=== PATIENT | female | born 1990 | race Caucasian/White ===

== ENCOUNTER 2019-01-21 11:48 | Outpatient (CLI) | payer OTHER ==
[~2019-01-21] VITALS: Ht 175.3 cm; Wt 120.0 kg
--- NOTE | 2019-01-21 12:00 | NUR ---
Patient presents to unit with complaints of bleeding and decreased movement. Patient reports then that she felt baby move on the way to facility. She denies any recent heavy lifting or sexual intercourse. Assesment completed, and monitors in place. Patient describes spotting with urination when wiping, discomfort and frequency without able to void. notified of patient arrival, FHT's in 130's with moderate variability and accelerations. No contractoins noted. per obtain UA and monitor.
[2019-01-21 12:04] VITALS: BP 111/59; PULSE 85; TEMP 99
[2019-01-21] MEDS ORDERED: SYNTHROID0.175 MG PO (12:08)
[2019-01-21] MEDS ORDERED: ZOLOFT 50MG50 MG PO (12:08)
[2019-01-21 13:12] LABS: COLLECTION METHOD CLEAN CATCH
[2019-01-21 13:25] LABS: MUCOUS Present /lpf; PH 7 (5-8); SQUAMOUS EPITHELIAL 0-2 /hpf; URINE APPEARANCE Hazy; URINE BACTERIA Occasional /hpf; URINE BILIRUBIN Negative (NEGATIVE); URINE BLOOD Negative (NEGATIVE); URINE COLOR Yellow; URINE GLUCOSE Negative (NEGATIVE); URINE KETONE Negative (NEGATIVE); URINE LEUKOCYTE ESTERASE Trace (NEGATIVE); URINE NITRATE Negative (NEGATIVE); URINE PROTEIN(semi-quant) Negative (NEGATIVE); URINE RBC 0-2 /hpf; URINE UROBILINOGEN Negative (NEGATIVE)
--- NOTE | 2019-01-21 13:38 | NUR ---
PRESCRIPTION CALLED IN ORDERED BY PHYSICIAN OF MACROBID 100MG PO/BID X7 DAYS
[2019-01-22] MEDS ORDERED: CEFTIN 250250 MG/TAB PO (02:52)
== END 2019-01-21 13:30 | disposition home or self-care (01) ==
LOC: LDRO 11:48 → LDR 12:57 → LDRO 13:30
PROVIDERS: Obstetrics & Gynecology
DX: O46.93 Antepartum hemorrhage, unspecified, third trimester (principal); O36.8130 Decreased fetal movements, third trimester, not applicable or unspecified; Z3A.35 35 weeks gestation of pregnancy
CPT/HCPCS: OP

== ENCOUNTER 2019-01-22 01:14 | Emergency (ER) | payer OTHER ==
[~2019-01-22] VITALS: Ht 175.3 cm; Wt 100.0 kg
[~2019-01-22 01:14] MED LIST: SYNTHROID0.175 MG PO; ZOLOFT 50MG50 MG PO
[2019-01-22 01:16] VITALS: TEMP 97.5
--- NOTE | 2019-01-22 01:49 | NUR ---
Pt seen in the ED for complaints of diarrhea. G2L1 36 wks gestation due 02/19/[address] Major. Pt denies any contractions, leaking of fluid, vaginal bleeding and reports normal movement. EFM and toco monitors started. Audible movement. No contractions noted per toco. See monitor charting for details. Encouraged scheduled follow up with MD. Drink plenty of fluid to stay hydrated. Call or return for concerns with contractions, leaking of fluid, vaginal bleeding or decreased movement.
[2019-01-22] MEDS ORDERED: CEFTIN 250250 MG/TAB PO (02:52)
[2019-01-22 02:56] VITALS: BP 102/64; PULSE 95
== END 2019-01-22 02:56 | disposition home or self-care (01) ==
LOC: COL.ER 01:14
DX: R19.7 Diarrhea, unspecified (principal); F41.9 Anxiety disorder, unspecified; F32.9 Major depressive disorder, single episode, unspecified; F43.10 Post-traumatic stress disorder, unspecified; Z90.89 Acquired absence of other organs; Z88.0 Allergy status to penicillin; Z88.8 Allergy status to other drugs, medicaments and biological substances

== ENCOUNTER 2019-02-23 07:03 | Inpatient (IN) | payer OTHER ==
[~2019-02-23] VITALS: Ht 175.3 cm; Wt 124.1 kg
[2019-02-23] VITALS (46 sets, daily range): BP systolic 102–142; BP diastolic 51–78; PULSE 75–113; TEMP 97.7–98.2
[~2019-02-23 07:03] MED LIST changes: +CEFTIN 250250 MG/TAB PO
--- NOTE | 2019-02-23 07:05 | NUR ---
PATIENT HERE IN LR 4 FOR INDUCTION. PATIENT CHANGED INTO GOWN. ON EFM, VOTALS OBTAINED. ADMISSION COMPLETE, IV STARTED, SVE PREFORMED, PATIENT DENIES LEAKING OF FLUID, CONTRACTIONS, OR BLEEDING. MAXI MCCRAY PRESENT AND INVOLVED. PATIENT STATES SHE QUALIFIES FOR WIC AND WILL MEET WITH THEM AFTER THE BABY IS BORN.
[2019-02-23] MEDS ORDERED: LEVO-DROMORAN2 MG (08:08)
[2019-02-23] MEDS ORDERED: TIROSINT S PO (08:13)
[2019-02-23] MEDS ORDERED: ZOLOFT 25MG25 MG PO (08:14)
[2019-02-23] MEDS ORDERED: PRENATAL (08:15)
[2019-02-23 08:22] LABS: BASO % 0.2 % (0.0-2.0); EOS # 0.1 (0.0-0.7); EOS % 0.5 % (0-4.0); GRAN # 8.8 (1.4-6.5); HEMOGLOBIN 10.4 g/dl (12.5-16.0); LYMPH # 2.9 (1.2-3.4); LYMPH % 23.7 % (20.0-51.0); MEAN CELL VOLUME 81 fl (80.0-100.0); MEAN CORPUSCULAR HEMOGLOBIN 25 pg (27.0-31.0); MEAN CORPUSCULAR HGB CONC 32 g/dl (33.0-37.0); MEAN PLATELET VOLUME 9.8 fl (7.4-10.4); MONO # 0.5 (0.1-0.6); PLATELET COUNT 340 K/mm3 (130-400)
--- NOTE | 2019-02-23 18:45 | NUR ---
184 DR STEWART IN ROOM TO VISIT WITH PT. PT STATES NOT REALLY FEELING ANY CONTRACTIONS AT THIS TIME. NOTED ON EFM EVERY 3-4 MINS. MONITER STRIP VIEWED BY DR STEWART. SVE PER DR STEWART WITH NO CERVICAL CHANGE. PITOCIN DCD. DISCUSSED OPTIONS AND PT CHOOSES TO BE DISCHARGED TO HOME AND BE SEEN IN OFFICE ON SATURDAY. 1912 EFM OFF FOR PT TO VOID. IV DCD AND DRESSED WHILE UP. 1924 DISMISS INSTRUCTIONS GIVEN AND QUESTIONS ANSWERED. HOME PER AMB WITH SPOUSE.
== END 2019-02-23 19:25 | disposition home or self-care (01) | DRG 833 ==
LOC: LDR 07:03
PROVIDERS: ADMIT Obstetrics & Gynecology
PROC: 3E033VJ Introduction of Other Hormone into Peripheral Vein, Percutaneous Approach (ICD-10-PCS; principal; 2019-02-23)
DX: O48.0 Post-term pregnancy (principal); Z3A.40 40 weeks gestation of pregnancy; O99.213 Obesity complicating pregnancy, third trimester; Z85.850 Personal history of malignant neoplasm of thyroid; O99.283 Endocrine, nutritional and metabolic diseases complicating pregnancy, third trimester; O99.013 Anemia complicating pregnancy, third trimester; O99.344 Other mental disorders complicating childbirth; F43.10 Post-traumatic stress disorder, unspecified
CPT/HCPCS: J2590; J7120

== ENCOUNTER 2019-02-27 09:30 | Inpatient (IN) | payer OTHER ==
[2019-02-27] VITALS (55 sets, daily range): BP systolic 92–153; BP diastolic 50–82; PULSE 76–130; TEMP 98.2–98.8
[~2019-02-27 09:30] MED LIST changes: +LEVO-DROMORAN2 MG; +PRENATAL; +TIROSINT S PO; +ZOLOFT 25MG25 MG PO
--- NOTE | 2019-02-27 09:40 | NUR ---
Patient presents to unit with significant other. External monitoring started, IV started in right hand, assessment completed. Pt states she is not in discomfort at this time.
[2019-02-27 10:23] LABS: BASO % 0.2 % (0.0-2.0); EOS # 0.1 (0.0-0.7); EOS % 0.4 % (0-4.0); GRAN # 8.6 (1.4-6.5); GRAN % 73.7 % (42.2-75.2); HEMOGLOBIN 10.2 g/dl (12.5-16.0); LYMPH # 2.3 (1.2-3.4); LYMPH % 20.1 % (20.0-51.0); MEAN CELL VOLUME 81 fl (80.0-100.0); MEAN CORPUSCULAR HEMOGLOBIN 25 pg (27.0-31.0); MEAN CORPUSCULAR HGB CONC 31 g/dl (33.0-37.0); MEAN PLATELET VOLUME 9.7 fl (7.4-10.4); MONO # 0.6 (0.1-0.6); MONO % 4.8 % (1.7-9.3); PLATELET COUNT 313 K/mm3 (130-400); RED BLOOD COUNT 4.06 M/mm3 (4.10-5.30); REDCELL DISTRIBUTION WIDTH-CV 17.2 % (11.5-14.5)
[2019-02-27 10:24] LABS: HEMATOCRIT 32.8 % (37.0-47.0)
--- NOTE | 2019-02-27 12:00 | NUR ---
Dr. Major at bedside. Reviewed FHR strip and contraction pattern. Patient reports she is feeling contractions and they are getting stronger. Discussing plan for SVE and AROM, patient agrees. 1205- SVE per provider . AROM by for small amount of clear fluid. Pericare given. Orders to continue Pitocin induction.
--- NOTE | 2019-02-27 14:40 | NUR ---
RN at bedside adjusting toco after repositioning patient. Contractions palpated every 2-2.5 minutes, relaxed resting tone.
--- NOTE | 2019-02-27 16:35 | NUR ---
Dr. Major at bedside, reviews FHR strip and contraction pattern. Discussing IUPC placement, patient agrees. SVE per provider 203/70/-3. IUPC placed by provider without diffiuclty, tracing well. Patient updated on plan of care. Orders to have next shift perform SVE and update physician.
--- NOTE | 2019-02-27 19:40 | NUR ---
192- PT SITTING UP AT SIDE OF BED FOR EPIDURAL PLACEMENT. THIS NURSE ADJUSTING US. FM AUDIBLE. 1925- Srikanth COX CRNA IN ROOM FOR EPIDURAL PLACEMENT. 1933- SINGLE SHOT GIVEN BY Srikanth COX CRNA, PT TOLERATED WELL. THIS NURSE CONTINUE TO ADJUST US, FM AUDIBLE. 1939- PT REPOSTIONED INTO SEMIFOWLERS WITH LEFT WEDGE FOLLOWING EPIDURAL PLACEMENT. US ADJUSTED.
--- NOTE | 2019-02-27 20:05 | NUR ---
1944- REPOSITIONED TO RIGHT WEDGE. 1949- BEGINS HAVE RECURRENT LATE DECELERATIONS INTO THE 90'S. THIS NURSE AT BEDSIDE. LR BOLUS CONTINUES, O2 ON AT 10L VIA FACEMASK. 1950- PITOCIN OFF, SVE OF 3-4/75/-3. 1952- LATE DECELERATIONS CONTINUE INTO THE 90'S. REPOSITIONED TO LEFT LATERAL. 1956- LATE DECELERATIONS CONTINUE INTO THE 130'S FROM BASELINE OF 155. DR. CUNNINGHAM ON UNIT, INTO ROOM TO EVALUATE PT, PERFORMS SVE, UNCHANGED FROM THIS NURSE'S PREVIOUS EXAM. 1999- DR. CUNNINGHAM OUT OF ROOM. SUBTLE LATE DECELERATIONS CONTINUE, DROPPING TO 140'S FROM BASELINE OF 155. 2004- DR. STEWART NOTIFIED, SEE PHYSICIAN NOTIFICATION.
--- NOTE | 2019-02-27 20:30 | NUR ---
2014-FSE PLACED PER DR. STEWART, SVE OF /-3. AND LR BOLUS DC'D. 2019- DR STEWART CALLS UNIT WITH UPDATE, SEE PHYSICIAN NOTIFICATION. PITOCIN RESTARTED AT [address] STEWART. 2025- [place] PLACED. PERICARE PROVIDED.
--- NOTE | 2019-02-27 21:44 | NUR ---
2129- CONTINUED SUBTLE LATE DECELERATIONS 2131- PT REPOSITIONED TO RIGHT LATERAL WITH LEG IN [place]IR[place]. EARLY DECELERATION AND VARIABLES SINCE POSITION CHANGE. 2143- CALLED DR. STEWART WITH UPDATE. SEE PHYSICIAN NOTIFICATION.
--- NOTE | 2019-02-27 22:15 | NUR ---
2158- DR. STEWART CALLS UNIT, SEE PHYSICIAN NOTIFICATION. 2201- PT TO KNEES AND CHEST. 2203- SVE PERFORMED, UNCHANGED. 2204- O2 ON AT 10L PER FACE MASK
--- NOTE | 2019-02-27 22:35 | NUR ---
2217- DR. STEWART IN ROOM TO EVALUATE PT. SVE UNCHANGED. DR. STEWART DISCUSSES PLAN OF CARE AND CONCERNS WITH FHTS. RECOMMENDS C/S AT THIS TIME. 2220- PT AND SPOUSE AGREE TO C/S AND VERBALIZE UNDERSTANDING. CHARGE, NSY, AND CORPORATE PHYSICAL SECURITY SUPERVISOR NOTIFIED OF PLAN. 2226- MONS PUBIS CLIPPED AND ABDOMINAL SCRUB PERFORMED. 2235- MONITORING DC'D. PT TO OR FOR C/S VIA BED.
[2019-02-28] VITALS (16 sets, daily range): BP systolic 102–125; BP diastolic 49–82; PULSE 76–108; TEMP 97.8–98.7
[2019-03-01 08:00] VITALS: BP 120/66; PULSE 88; TEMP 98.2
[2019-03-01] MEDS ORDERED: PERCOCET 325 MG1 TA2 PO (08:51)
[2019-03-01] MEDS ORDERED: IBU600 MG PO (08:51)
[2019-03-01 17:15] VITALS: BP 124/84; PULSE 95; TEMP 98
[2019-03-01 19:35] VITALS: BP 128/62; PULSE 88; TEMP 98.1
[2019-03-02 07:20] VITALS: BP 105/56; PULSE 80; TEMP 98.1
== END 2019-03-02 16:25 | disposition home or self-care (01) | DRG 788 ==
LOC: LDR 09:30 → OB 09:30
PROVIDERS: ADMIT Obstetrics & Gynecology
PROC: 10907ZC Drainage of Amniotic Fluid, Therapeutic from Products of Conception, Via Natural or Artificial Opening (ICD-10-PCS; principal; 2019-02-27)
PROC: 10D00Z1 Extraction of Products of Conception, Low, Open Approach (ICD-10-PCS; 2019-02-27)
DX: O41.03X0 Oligohydramnios, third trimester, not applicable or unspecified (principal); O99.284 Endocrine, nutritional and metabolic diseases complicating childbirth; E03.9 Hypothyroidism, unspecified; O99.02 Anemia complicating childbirth; D64.9 Anemia, unspecified; O99.214 Obesity complicating childbirth; O36.8330 Maternal care for abnormalities of the fetal heart rate or rhythm, third trimester, not applicable or unspecified; Z3A.41 41 weeks gestation of pregnancy; Z37.0 Single live birth; Z85.850 Personal history of malignant neoplasm of thyroid; Z88.0 Allergy status to penicillin
CPT/HCPCS: J0690; J1885; J2370; J2400; J2405; J2590; J2791; J2795; J3010; J7120

== ENCOUNTER → 2019-03-11 | Outpatient (CLI) | payer OTHER ==
[~2019-03-11] MED LIST changes: +IBU600 MG PO; +PERCOCET 325 MG1 TA2 PO
--- NOTE | 2019-03-11 12:16 | NUR ---
Pt, Shruti Browning, presents for outpatient consult with 12 day old baby girl, Katiuska Busby, because Katiuska does not latch to the breast without the nipple shield, and hx significant for low milk supply. Pt reports h/o thyroid cancer with thyroidectomy and treatment in [id number]. She takes replacement levothyroxine. Also reports h/o PCOS that is reportedly not a factor after she lost a large amount of weight. Katiuska was born by repeat c/section on 02/27/[birth year] and weighed 7#14.6oz (3590 gms). Her lowest known weight was 7#3oz on 03/03/19. Today Katiuska weighs 7#11.2oz (3492 gms). Pt reports Katiuska breastfeeds frequently in daytime, every couple hours, with the nipple shield. In the noc hours Katiuska is fed 2oz EBM or formula x2. Pt pumps at these feedings and reports collecting about 2oz total. Mario Alberto first nurses with the nipple shield. She has a 0.5oz (16 gms) weight gain after the left breast and 0.9oz (26 gms) on the left. Pt is assisted with placing Katiuska back to the breast without the nipple shield, Katiuska latches, has some swallows and additional gain of Total gain after bilaterally, both with and without the nipple shield is 1.7oz, (50 gms) POC: Handout provided with suggestions for increasing milk supply. Encouraged herbal supplements and power pumping. Elective supplementing after breastfeedings as needed and continue pumping and bottle feeding. F/U: Encouraged to attend walk-in clinic next Saturday. Questions invited and answered.
== END ==
LOC: OLC 11:51 → COL.VAS 11:51
DX: I80.299 Phlebitis and thrombophlebitis of other deep vessels of unspecified lower extremity (principal)

== ENCOUNTER 2019-09-03 18:22 | Emergency (ER) | payer BC ==
[~2019-09-03] VITALS: Ht 175.3 cm; Wt 120.0 kg
[2019-09-03 18:25] VITALS: TEMP 97.8
[2019-09-03 19:04] LABS: ALBUMIN 3.8 gm/dL (3.5-5.0); BASO % 0.4 % (0.0-2.0); BILIRUBIN,TOTAL 0.3 mg/dL (0.0-1.0); CREATININE, serum 0.64 (0.52-1.25); EOS # 0.1 (0.0-0.7); EOS % 1.1 % (0-4.0); GRAN # 6.5 (1.4-6.5); GRAN % 59.7 % (42.2-75.2); HEMATOCRIT 39.1 % (37.0-47.0); LYMPH # 3.7 (1.2-3.4); LYMPH % 33.6 % (20.0-51.0); MEAN CELL VOLUME 80 fl (80.0-100.0); MEAN CORPUSCULAR HEMOGLOBIN 24 pg (27.0-31.0); MEAN CORPUSCULAR HGB CONC 31 g/dl (33.0-37.0); MEAN PLATELET VOLUME 9.3 fl (7.4-10.4); MONO # 0.5 (0.1-0.6); MONO % 4.9 % (1.7-9.3); PLATELET COUNT 276 K/mm3 (130-400); POTASSIUM 4.2 mmol/L (3.4-5.0); RED BLOOD COUNT 4.91 M/mm3 (4.10-5.30); REDCELL DISTRIBUTION WIDTH-CV 17.5 % (11.5-14.5); TOTAL PROTEIN 7.7 gm/dL (6.4-8.2)
[2019-09-03] MEDS ORDERED: SYNTHROID0.175 MG PO (19:05)
[2019-09-03] MEDS ORDERED: LEXAPRO 10MG10 MG PO (19:06)
[2019-09-03] MEDS ORDERED: PROFE180 MG PO (19:06)
[2019-09-03] MEDS ORDERED: OZEMPIC0.25 MG/0. SQ (19:06)
[2019-09-03] MEDS ORDERED: PROBIOTIC-10 370 MG PO (19:06)
[2019-09-03] MEDS ORDERED: VITAMIN D31000 I1 PO (19:06)
[2019-09-03] MEDS ORDERED: DESYREL 50MG50 MG PO ×2 (19:07)
[2019-09-03 19:08] LABS: INR 1.1 (0.8-3.0); PROTHROMBIN TIME 12.8 SECONDS (9.7-12.8)
[2019-09-03] MEDS ORDERED: NORCO 325 MG-51 TAB PO (19:44)
[2019-09-03 21:03] VITALS: BP 111/75; PULSE 79
== END 2019-09-03 21:05 | disposition home or self-care (01) ==
LOC: COL.ER 18:22
PROVIDERS: Nurse Practitioner
DX: M79.662 Pain in left lower leg (principal); M79.89 Other specified soft tissue disorders; E11.9 Type 2 diabetes mellitus without complications; F32.9 Major depressive disorder, single episode, unspecified; F43.10 Post-traumatic stress disorder, unspecified; Z88.0 Allergy status to penicillin; Z88.8 Allergy status to other drugs, medicaments and biological substances; Z79.84 Long term (current) use of oral hypoglycemic drugs
CPT/HCPCS: J1650

== ENCOUNTER → 2019-09-04 | Outpatient (CLI) | payer BC ==
[~2019-09-04] MED LIST changes: +DESYREL 50MG50 MG PO; +LEXAPRO 10MG10 MG PO; +NORCO 325 MG-51 TAB PO; +OZEMPIC0.25 MG/0. SQ; +PROBIOTIC-10 370 MG PO; +PROFE180 MG PO; +VITAMIN D31000 I1 PO
== END ==
LOC: COL.VAS 08:58
DX: M79.89 Other specified soft tissue disorders (principal)

== ENCOUNTER 2021-03-13 11:38 | Emergency (ER) | payer OTHER, BC ==
[~2021-03-13] VITALS: Ht 175.3 cm; Wt 98.6 kg
[2021-03-13 11:49] VITALS: TEMP 97.8
[2021-03-13 13:07] LABS: BASO % 0.2 % (0.0-2.0); EOS % 0.2 % (0-4.0); HEMATOCRIT 42.9 % (37.0-47.0); HEMOGLOBIN 13.6 g/dl (12.5-16.0); LYMPH # 3.2 K/mm3 (1.2-3.4); LYMPH % 19.8 % (20.0-51.0); MEAN CELL VOLUME 83 fl (80.0-100.0); MEAN CORPUSCULAR HEMOGLOBIN 26 pg (27.0-31.0); MEAN CORPUSCULAR HGB CONC 32 g/dl (33.0-37.0); MEAN PLATELET VOLUME 9.1 fl (7.4-10.4); MONO # 0.9 K/mm3 (0.1-0.6); MONO % 5.4 % (1.7-9.3); PLATELET COUNT 426 K/mm3 (130-400); RED BLOOD COUNT 5.16 M/mm3 (4.10-5.30); REDCELL DISTRIBUTION WIDTH-CV 14.6 % (11.5-14.5)
[2021-03-13 13:12] LABS: ALBUMIN 3.8 gm/dL (3.5-5.0); BILIRUBIN,TOTAL 0.4 mg/dL (0.2-1.2); CALCIUM 8.9 mg/dL (8.4-10.2); CREATININE, serum 0.79 mg/dL (0.57-1.11); POTASSIUM 4.1 mmol/L (3.5-4.5)
[2021-03-13] MEDS ORDERED: FLEXERIL 1010 MG/TAB PO (14:51)
[2021-03-13 15:11] VITALS: BP 107/70; PULSE 75
== END 2021-03-13 15:11 | disposition home or self-care (01) ==
LOC: COL.ER 11:38
PROVIDERS: Physician Assistant
DX: S06.0X0A Concussion without loss of consciousness, initial encounter (principal); E11.9 Type 2 diabetes mellitus without complications; Z79.84 Long term (current) use of oral hypoglycemic drugs; V48.5XXA Car driver injured in noncollision transport accident in traffic accident, initial encounter; Y92.411 Interstate highway as the place of occurrence of the external cause
CPT/HCPCS: J2405; Q9967

== ENCOUNTER 2022-05-04 12:34 | Emergency (ER) | payer BC ==
[~2022-05-04] VITALS: Ht 175.3 cm; Wt 96.8 kg
[~2022-05-04 12:34] MED LIST changes: +FLEXERIL 1010 MG/TAB PO
[2022-05-04 12:55] VITALS: TEMP 98
[2022-05-04 14:07] LABS: CLOSTRIDIUM DIFF A/B NEG; CLOSTRIDIUM DIFF A/B INTERP No C.diff present
[2022-05-04 14:13] LABS: BASO # 0.1 K/mm3 (0.0-0.2); BASO % 0.6 % (0.0-2.0); EOS # 0.1 K/mm3 (0.0-0.7); GRAN # 6.7 K/mm3 (1.4-6.5); HEMATOCRIT 41.1 % (37.0-47.0); HEMOGLOBIN 13.3 g/dl (12.5-16.0); LYMPH # 3.5 K/mm3 (1.2-3.4); LYMPH % 32.4 % (20.0-51.0); MEAN CELL VOLUME 84 fl (80.0-100.0); MEAN CORPUSCULAR HEMOGLOBIN 27 pg (27-31); MEAN CORPUSCULAR HGB CONC 32 g/dl (33.0-37.0); MEAN PLATELET VOLUME 9.6 fl (7.4-10.4); MONO # 0.4 K/mm3 (0.1-0.6); MONO % 3.7 % (1.7-9.3); PLATELET COUNT 361 K/mm3 (130-400); RED BLOOD COUNT 4.88 M/mm3 (4.10-5.30); REDCELL DISTRIBUTION WIDTH-CV 15.5 % (11.5-14.5)
[2022-05-04 14:31] LABS: ALBUMIN 3.8 gm/dL (3.5-5.0); BILIRUBIN,TOTAL 0.4 mg/dL (0.2-1.2); C-REACTIVE PROTEIN 0.77 mg/dL (0.00-0.50); CALCIUM 9.4 mg/dL (8.4-10.2); CREATININE, serum 0.81 mg/dL (0.57-1.11); POTASSIUM 3.9 mmol/L (3.5-4.5); TOTAL PROTEIN 7.8 gm/dL (6.2-8.1)
[2022-05-04 15:45] LABS: URINE APPEARANCE Clear (CLEAR/HAZY); URINE COLOR Yellow (YELLOW)
[2022-05-04 15:46] LABS: PH 5.5 (5.0-8.5); URINE BLOOD Negative (NEGATIVE); URINE GLUCOSE Negative (NEGATIVE); URINE KETONE Negative (NEGATIVE); URINE NITRATE Negative (NEGATIVE); URINE PROTEIN(semi-quant) Negative (NEGATIVE); URINE UROBILINOGEN 0.2 E.U/dL (0.2-1.0)
[2022-05-04 15:51] LABS: URINE BACTERIA None Seen /hpf (NONE SEEN); URINE RBC 0-2 /hpf (0-2); URINE WBC 0-2 /hpf (0-2)
[2022-05-04 15:52] LABS: COLLECTION METHOD CLEAN CATCH
[2022-05-04 16:20] VITALS: BP 120/77; PULSE 76
[2022-05-04] MEDS ORDERED: ANTI-DIARRHEAL2 MG PO (16:32)
== END 2022-05-04 16:20 | disposition home or self-care (01) ==
LOC: COL.ER 12:34
PROVIDERS: Emergency Medicine; Physician Assistant
DX: R19.7 Diarrhea, unspecified (principal); R10.9 Unspecified abdominal pain; Z28.310 Unvaccinated for COVID-19
CPT/HCPCS: J2405; J7120